=== PATIENT | male | born 1970 | race Caucasian/White ===

== ENCOUNTER 2022-09-14 09:43 | Inpatient (IN) | payer BC, OTHER ==
[2022-09-14 11:31] LABS: #Eosinphils 0.1 thou/uL (0.0-0.7); #Lymphocytes 1.2 thou/uL (1.20-3.40); #Monocytes 0.7 thou/uL (0.11-0.59); #Neutrophils 7.8 thou/uL (1.40-6.50); %Basophils 0.3 % (0.0-1.0); %Lymphocytes 11.8 % (21.0-51.0); %Monocytes 7.3 % (0.0-10.0); %Neutrophils 79.6 % (42.0-75.0); Hemoglobin 16.5 g/dL (14.0-18.0); Mean Corpuscular HGB CONC 33.7 g/dL (32.0-36.0); Mean Corpuscular Hemoglobin 33.4 pg (27.0-31.0); Mean Platelet Volume 10.7 fL (7.4-10.4); Platelet Count 199 10x3/uL (130-400); Red Blood Cell (RBC) Count 4.95 mill/uL (4.70-6.10); White Blood Cell (WBC) Count 9.8 10x3/uL (4.8-10.8)
[2022-09-14 12:16] LABS: ALT (SGPT) 23 U/L (8-55); AST (SGOT) 28 U/L (5-34); Alkaline Phosphatase 46 U/L (40-110); Anion Gap 11 mmol/L (10-20); BUN (Urea Nitrogen) 9 mg/dL (8.4-25.7); Bilirubin, Total 0.7 mg/dL (0.2-1.2); Calc. Creatinine Clearance 0 mL/min (70-130); Calcium 8.9 mg/dL (7.8-10.44); Carbon Dioxide 29 mmol/L (22-29); Chloride 99 mmol/L (98-107); Estimated GFR 73; Globulin 3.3 g/dL (2.4-3.5); Glucose 77 mg/dL (70-105); Potassium 4.2 mmol/L (3.5-5.1); Protein, Total 7.3 g/dL (6.0-8.3); Sodium 135 mmol/L (136-145)
[2022-09-14] MEDS ORDERED: HYDROcodone/Acetaminophen 5/325 mg Tablet PO PRN (14:10)
[2022-09-14] MEDS ORDERED: Nitroglycerin 0.4 MG TAB (25 Tab Bottle) SL PRN (14:10)
[2022-09-14] MEDS ORDERED: Acetaminophen 325 MG TAB PO PRN (14:10)
[2022-09-14] MEDS ORDERED: Ondansetron PF 4 MG/2 ML Vial IVP PRN (14:10)
[2022-09-14 14:59] LABS: Troponin I Less than 0.010 ng/mL (< 0.028)
[2022-09-14 18:37] LABS: Troponin I Less than 0.010 ng/mL (< 0.028)
[2022-09-14 18:38] VITALS: BMI 31.4
[2022-09-15 05:21] LABS: #Eosinphils 0.1 thou/uL (0.0-0.7); #Lymphocytes 1.4 thou/uL (1.20-3.40); #Monocytes 0.7 thou/uL (0.11-0.59); #Neutrophils 5.2 thou/uL (1.40-6.50); %Basophils 0.6 % (0.0-1.0); %Eosinophils 1.9 % (0.0-10.0); %Lymphocytes 19.1 % (21.0-51.0); %Monocytes 9.1 % (0.0-10.0); %Neutrophils 69.4 % (42.0-75.0); Hemoglobin 16.9 g/dL (14.0-18.0); Mean Corpuscular HGB CONC 33.4 g/dL (32.0-36.0); Mean Corpuscular Hemoglobin 33.5 pg (27.0-31.0); Mean Platelet Volume 10.9 fL (7.4-10.4); Platelet Count 181 10x3/uL (130-400); RBC Distribution Width 13.2 % (11.5-14.5); Red Blood Cell (RBC) Count 5.03 mill/uL (4.70-6.10); White Blood Cell (WBC) Count 7.5 10x3/uL (4.8-10.8)
[2022-09-15 05:43] LABS: Anion Gap 12 mmol/L (10-20); BUN (Urea Nitrogen) 13 mg/dL (8.4-25.7); Calc. Creatinine Clearance 97 mL/min (70-130); Calcium 8.7 mg/dL (7.8-10.44); Carbon Dioxide 28 mmol/L (22-29); Cardiac Risk 13.5 (Less than 4.5); Chloride 102 mmol/L (98-107); Cholesterol 256 mg/dl (< 200 Desired); Estimated GFR 71; Glucose 93 mg/dL (70-105); HDL Cholesterol 19 mg/dL (>60 Neg Risk); LDL Cholesterol, Calculated 211 mg/dL; Potassium 4.3 mmol/L (3.5-5.1); Sodium 138 mmol/L (136-145); Triglycerides 129 mg/dL (Less than 150)
[2022-09-15] MEDS: Aspirin Chewable 81 MG TAB PO SCH (08:25)
[2022-09-15] MEDS: FLUoxetine HCl 20 MG CAP PO SCH (08:26)
[2022-09-15] MEDS ORDERED: Atorvastatin Calcium 20 MG TAB PO SCH ×4 (08:45→09:00)
[2022-09-15] MEDS ORDERED: Tadalafil [Tadalafil] 20 MG Tablet PO SCH (09:00)
[2022-09-15] MEDS ORDERED: FLU VACC QS2022-23(6MOS UP)/PF 60 MCG/0.5 ML SYRINGE IM ONE (09:00)
[2022-09-15] MEDS ORDERED: Iopamidol 370 76% 100 ML VIAL ONE (09:16)
[2022-09-15] MEDS: Atorvastatin Calcium 40 MG TAB PO SCH (09:23)
[2022-09-15] MEDS ORDERED: Lactated Ringer's 500 ML IV SCH (16:15)
[2022-09-16] MEDS ORDERED: Anastrozole 1 MG TAB PO SCH (09:00)
[2022-09-16] MEDS: Aspirin Chewable 81 MG TAB PO SCH (10:08)
[2022-09-16] MEDS: Atorvastatin Calcium 40 MG TAB PO SCH (10:09)
[2022-09-16] MEDS: FLUoxetine HCl 20 MG CAP PO SCH (10:10)
[2022-09-16 12:02] VITALS: BP 144/65; TEMP 99.2
== END 2022-09-16 12:20 | disposition home or self-care (01) | DRG 312 ==
LOC: ERS 09:43 → ERHOLD 13:28 → 2SW 17:17 → OBSVTOIN 09-15 16:58
PROVIDERS: ADMIT Internal Medicine; ATTEND Internal Medicine
DX: I95.1 Orthostatic hypotension (principal); Z20.822 Contact with and (suspected) exposure to COVID-19; I25.10 Atherosclerotic heart disease of native coronary artery without angina pectoris; I10 Essential (primary) hypertension; E78.5 Hyperlipidemia, unspecified; G89.29 Other chronic pain; M54.50 Low back pain, unspecified; Z28.21 Immunization not carried out because of patient refusal; Z90.49 Acquired absence of other specified parts of digestive tract; Z98.890 Other specified postprocedural states; Z82.49 Family history of ischemic heart disease and other diseases of the circulatory system
CPT/HCPCS: 36415; 70470; 71045; 80048; 80053; 80061; 83880; 84484; 85025; 93005; 93306; 94760; 95816; 95819; 95957; 96372; G0378; J1650; J7120; Q9967; U0003; U0005